=== PATIENT | male | born 1985 | race Caucasian/White ===

== ENCOUNTER 2021-08-03 10:53 | Emergency (ER) | payer SELFPAY ==
[2021-08-03 11:01] VITALS: BP 148/96
--- NOTE | 2021-08-03 11:24 | Emergency Department Report ---
ED Abdominal Pain HPI - General Stated Complaint: ABD PAIN Time Seen by Provider: 08/03/21 11:08 - History of Present Illness Initial Comments: 36-year-old male presents to ED with right upper quadrant pain since last night. Patient states pain initially began 2 weeks ago. States he was admitted and diagnosed with gallstones and pancreatitis. Patient had a follow-up appointment with GI 2 days ago. Patient states he was not told anything and was not given any additional prescriptions. Patient has been taking Percocet since his discharge for treatment of his pain, however he states it did not help last night. Patient reports eating beef soup for dinner last night. He denies any fever, nausea, vomiting, diarrhea. Patient has not made a follow-up appointment with the surgeon yet. Previous visit is under patient name: FARRUKH GAO Previous MR#: [id number] Complaint: abdominal pain -: Last night Radiation: RUQ Migration to: no migration Severity: moderate Quality: aching Consistency: constant Improves With: nothing Worsens With: nothing Associated Symptoms: denies: nausea, vomiting, diarrhea, fever - Related Data Previous Rx's Medication Instructions Recorded Last Taken Type Dicyclomine [Bentyl] 20 mg PO QID PRN #20 tablet 08/03/21 Unknown Rx Naproxen [Naprosyn] 500 mg PO BID #20 tablet 08/03/21 Unknown Rx Allergies Allergy/AdvReac Type Severity Reaction Status Date / Time No Known Allergies Allergy Unverified 08/03/21 12:03 ED Review of Systems ROS: Stated complaint: ABD PAIN Other details as noted in HPI Comment: All other systems reviewed and negative Constitutional: denies: chills, fever Gastrointestinal: abdominal pain. denies: nausea, vomiting, diarrhea Musculoskeletal: denies: back pain ED Past Medical Hx - Medications Home Medications: Home Medications Medication Instructions Recorded Confirmed Last Taken Type Dicyclomine [Bentyl] 20 mg PO QID PRN #20 tablet 08/03/21 Unknown Rx Naproxen [Naprosyn] 500 mg PO BID #20 tablet 08/03/21 Unknown Rx ED Physical Exam - General General appearance: alert, in no apparent distress - Head Head exam: Present: atraumatic, normocephalic - Eye Eye exam: Present: normal appearance, EOMI - ENT ENT exam: Present: mucous membranes moist - Neck Neck exam: Present: normal inspection - Respiratory Respiratory exam: Present: normal lung sounds bilaterally. Absent: respiratory distress - Cardiovascular Cardiovascular Exam: Present: regular rate, normal rhythm - GI/Abdominal GI/Abdominal exam: Present: soft, tenderness (RUQ). Absent: distended - Extremities Exam Extremities exam: Present: normal inspection - Neurological Exam Neurological exam: Present: alert, oriented X3 - Psychiatric Psychiatric exam: Present: normal affect, normal mood - Skin Skin exam: Present: warm, dry, intact, normal color ED Course Vital Signs 08/03/21 10:57 Temperature 98.0 F Pulse Rate 76 Respiratory 18 Rate Blood Pressure 148/96 O2 Sat by Pulse 96 Oximetry ED Medical Decision Making - Lab Data Result diagrams: 08/03/21 11:27 08/03/21 11:27 - Medical Decision Making 36-year-old male with known gallstones presents to ED with right upper quadrant pain. Recently admitted 2 weeks ago for same. At that time patient had pancreatitis as well. Today lipase is normal, along with remainder of labs. Vital signs are normal. Patient advised to follow-up with surgery. Return precautions given. - Differential Diagnosis Biliary colic, cholecystitis, pancreatitis Critical care attestation.: If time is entered above; I have spent that time in minutes in the direct care of this critically ill patient, excluding procedure time. ED Disposition Clinical Impression: Biliary colic Disposition: 01 HOME / SELF CARE / HOMELESS Is pt being admited?: No Condition: Stable Instructions: Biliary Colic, Adult Prescriptions: Dicyclomine [Bentyl] 20 mg PO QID PRN #20 tablet PRN Reason: abdominal pain Naproxen [Naprosyn] 500 mg PO BID #20 tablet Referrals: MESERET BRADEN DO [Staff Physician] - 3-5 Days Time of Disposition: 12:20 Print Language: SERBIAN
[2021-08-03 11:39] LABS: Basophils # (Auto) 0.1 K/mm3 (0.0-0.1); Basophils % (Auto) 0.7 % (0.0-1.8); Eosinophils # (Auto) 0.3 K/mm3 (0.0-0.4); Eosinophils % (Auto) 3.2 % (0.0-4.3); Hematocrit 45.1 % (35.5-45.6); Hemoglobin 15.7 gm/dl (11.8-15.2); Lymphocytes # (Auto) 2.3 K/mm3 (1.2-5.4); Lymphocytes % (Auto) 27.7 % (13.4-35.0); Mean Corpuscular HGB Conc 35 % (32-34); Mean Corpuscular Volume 89 fl (84-94); Monocytes # (Auto) 0.6 K/mm3 (0.0-0.8); Monocytes % (Auto) 7.4 % (0.0-7.3); Platelet Count 190 K/mm3 (140-440); Red Blood Count 5.07 M/mm3 (3.65-5.03); Red Cell Distribution Width 12.9 % (13.2-15.2)
[2021-08-03 12:03] LABS: Alanine Aminotransferase 36 units/L (7-56); Albumin 4.8 g/dL (3.9-5); BUN/Creatinine Ratio 15; Blood Urea Nitrogen 12 mg/dL (9-20); Calcium 9.6 mg/dL (8.4-10.2); Hemolysis Index 11
[2021-08-03 12:04] LABS: Bilirubin,Direct < 0.2 mg/dL (0-0.2)
[2021-08-03] MEDS ORDERED: IBUPROFEN 800 MG TAB PO ONE (13:00)
[2021-08-03] MEDS ORDERED: traMADol 50 MG TAB PO ONE (13:00)
== END 2021-08-03 12:57 | disposition home or self-care (01) ==
LOC: ED 10:53
DX: K80.50 Calculus of bile duct without cholangitis or cholecystitis without obstruction (principal)
CPT/HCPCS: 36415; 80048; 80076; 83690; 85025; 99283